=== PATIENT | female | born 1955 | race Caucasian/White ===

== ENCOUNTER → 2016-12-23 16:53 | Outpatient (CLI) | payer OTHER | END | disposition home or self-care (01) | LOC: D.MAMMO 10:30 | DX: N63 Unspecified lump in breast (principal); Z80.3 Family history of malignant neoplasm of breast ==

== ENCOUNTER 2018-11-18 08:00 | Outpatient (CLI) | payer OTHER | END 2018-11-18 09:00 | disposition home or self-care (01) | LOC: D.MAMMO 08:00 | DX: Z12.31 Encounter for screening mammogram for malignant neoplasm of breast (principal) ==

== ENCOUNTER 2019-12-04 08:00 | Outpatient (CLI) | payer OTHER | END 2019-12-04 23:59 | disposition home or self-care (01) | LOC: D.MAMMO 08:00 | PROVIDERS: ATTEND Family Medicine | DX: Z12.31 Encounter for screening mammogram for malignant neoplasm of breast (principal) ==

== ENCOUNTER 2021-01-23 11:30 | Outpatient (CLI) | payer OTHER | END 2021-01-23 12:30 | disposition home or self-care (01) | LOC: D.MAMMO 11:30 | PROVIDERS: ATTEND Nurse Practitioner Family | DX: Z12.31 Encounter for screening mammogram for malignant neoplasm of breast (principal) ==